=== PATIENT | female | born 1965 | race Caucasian/White ===

== ENCOUNTER 2019-10-04 15:55 | Outpatient (CLI) | payer OTHER | END 2019-10-04 23:59 | disposition home or self-care (01) | LOC: RAD 15:55 | PROVIDERS: ATTEND Internal Medicine Gastroenterology | DX: R13.14 Dysphagia, pharyngoesophageal phase (principal); K21.9 Gastro-esophageal reflux disease without esophagitis | CPT/HCPCS: 74230 ==